=== PATIENT | female | born 1980 ===

== ENCOUNTER 2017-05-28 18:36 | Emergency (ER) | payer SELFPAY ==
[2017-05-28 18:40] VITALS: BMI 25.8
[2017-05-28 18:43] VITALS: BP 116/76; PULSE 69; RESP 18; TEMP 98.5; O2SAT 99
--- NOTE | 2017-05-28 19:33 | ED PDOC ---
Arrival/HPI <Bernard Jeffrey - Last Filed: 05/28/17 19:40> - General Historian: Patient - History of Present Illness Time/Duration: < month Symptom Onset: Gradual Symptom Course: Worsening Context: Home <Nory Keenan - Last Filed: 06/04/17 22:09> - General Chief Complaint: Upper Extremity Problem/Injury Time Seen by Provider: 05/28/17 19:10 - History of Present Illness Narrative History of Present Illness (Text): 05/28/17 19:10 This 36 yo female presents to this ED c/o left shoulder pain x 2 weeks. Patient denies trauma, fall, paresthesias, weakness, swelling, rash, abscess, or neck pain (Nory Keenan) Past Medical History - Provider Review Nursing Documentation Reviewed: Yes - Past History Past History: No Previous - Infectious Disease Hx of Infectious Diseases: None - Past Medical History Past Medical History: No Previous - Genitourinary/Gynecological Hx Genitourinary Disorders: No Other/Comment: depo shot in dec 2016 - Psychiatric Hx Depression: No Hx Emotional Abuse: No Hx Physical Abuse: No Hx Substance Use: No - Past Surgical History Past Surgical History: No Previous - Surgical History Hx Section: Yes Hx Musculoskeletal Surgery: Yes (R wrist surgery) - Anesthesia Hx Anesthesia: Yes Hx Anesthesia Reactions: No - Suicidal Assessment Feels Threatened In Home Enviroment: No <Nory Keenan - Last Filed: 06/04/17 22:09> Family/Social History - Physician Review Nursing Documentation Reviewed: Yes Family/Social History: No Known Family HX Smoking Status: Heavy Smoker > 10 Cigarettes Daily Hx Alcohol Use: No Hx Substance Use: No <Nory Keenan - Last Filed: 06/04/17 22:09> Allergies/Home Meds <Bernard Jeffrey - Last Filed: 05/28/17 19:40> <Nory Keenan - Last Filed: 06/04/17 22:09> Allergies/Adverse Reactions: Allergies No Known Allergies Allergy (Verified 05/28/17 18:40) Review of Systems - Review of Systems Constitutional: Normal. absent: Fatigue, Weight Change, Fevers Eyes: Normal ENT: Normal Respiratory: Normal Cardiovascular: Normal Gastrointestinal: Normal Genitourinary Female: Normal Musculoskeletal: Other (left shoulder pain) Skin: Normal Neurological: Normal Endocrine: Normal Hemo/Lymphatic: Normal Psychiatric: Normal <Nory Keenan - Last Filed: 06/04/17 22:09> Physical Exam Temperature: Afebrile Blood Pressure: Normal Pulse: Regular Respiratory Rate: Normal Appearance: Positive for: Well-Appearing, Non-Toxic, Comfortable Pain Distress: None Mental Status: Positive for: Alert and Oriented X 3 - Systems Exam Head: Present: Atraumatic, Normocephalic Pupils: Present: PERRL Extroacular Muscles: Present: EOMI Conjunctiva: Present: Normal Mouth: Present: Moist Mucous Membranes Neck: Present: Normal Range of Motion, Trachea Midline. No: Meningeal Signs, MIDLINE TENDERNESS, Paraspinal Tenderness Upper Extremity: Present: Normal Inspection, Normal ROM, NORMAL PULSES, Tenderness (mild tenderness over left middle deltoid area. no swelling, erythema, or abscess. Normal ROM), Neurovascularly Intact, Capillary Refill < 2s. No: Cyanosis, Edema, Swelling, Erythema, Temperature Abnormalties Lower Extremity: Present: Normal Inspection, NORMAL PULSES, Normal ROM, Neurovascularly Intact, Capillary Refill < 2 s Neurological: Present: GCS=15, CN II-XII Intact, Speech Normal, Motor Func Grossly Intact, Normal Cerebellar Funct Skin: Present: Warm, Dry, Normal Color. No: Rashes Psychiatric: Present: Alert, Oriented x 3 <Nory Keenan - Last Filed: 06/04/17 22:09> Vital Signs Temp Pulse Resp BP Pulse Ox 05/28/17 20:19 18 99 05/28/17 18:42 98.5 F 69 18 116/76 99 Medical Decision Making <Bernard Jeffrey - Last Filed: 05/28/17 19:40> Re-evaluation Time: 20:03 Reassessment Condition: Re-examined, Improved <Nory Keenan - Last Filed: 06/04/17 22:09> ED Course and Treatment: 05/28/17 20:03 Re-evaluation. Patient feels better. Discussed results and plan with patient who expresses understanding. All questions answered and there is agreement with the plan to discharge home with instructions. Patient stable for discharge. Return if symptoms persist or worsen. (Nory Keenan) - RAD Interpretation Narrative RAD Interpretations (Text): 05/28/17 20:03 Shoulder x-rays: No fx or dislocation (Nory Keenan) Radiology Orders: 05/28/17 19:31 SHOULDER LEFT [RAD] Stat - Medication Orders Current Medication Orders: Discontinued Medications Ketorolac Tromethamine (Toradol) 15 mg IM STAT STA Stop: 05/28/17 19:32 Last Admin: 05/28/17 19:44 Dose: 15 mg - PA / FINANCE PROFESSIONAL / Resident Statement / has reviewed & agrees with the documentation as recorded. <Bernard Jeffrey - Last Filed: 05/28/17 19:40> Disposition/Present on Arrival <Bernard Jeffrey - Last Filed: 05/28/17 19:40> - Present on Arrival Any Indicators Present on Arrival: No History of DVT/PE: No History of Uncontrolled Diabetes: No Urinary Catheter: No History of Decub. Ulcer: No History Surgical Site Infection Following: None - Disposition Have Diagnosis and Disposition been Completed?: Yes Disposition Time: 20:04 Patient Plan: Discharge <Nory Keenan - Last Filed: 06/04/17 22:09> - Disposition Diagnosis: Shoulder bursitis Disposition: HOME/ ROUTINE Condition: GOOD Discharge Instructions (ExitCare): Shoulder Bursitis (ED) Additional Instructions: Call private doctor for follow up visit in 1-2 days. Take medication as instructed. Return to emergency if symptoms worsen. Prescriptions: Famotidine [Pepcid] 40 mg PO DAILY #10 tablet Methocarbamol [Robaxin-750] 750 mg PO TID PRN #20 tablet PRN Reason: Muscle Spasm Naproxen 500 mg PO BID #14 tab Referrals: Elizabeth Steven MD [Primary Care Provider] - Follow up with primary Aniceto Macias DO [Staff Provider] - Follow up with primary Forms: WORK NOTE
--- NOTE | 2017-05-29 07:24 | RAD ---
PROCEDURE: Radiographs of the Left Shoulder HISTORY: pain COMPARISON: No prior. FINDINGS: BONES: Normal. No fracture. JOINTS: Normal. Glenohumeral and acromioclavicular joints preserved. No osteoarthritis. SOFT TISSUES: Normal. OTHER FINDINGS: None. IMPRESSION: Normal radiographs of the left shoulder.
== END 2017-05-28 20:20 | disposition home or self-care (01) ==
LOC: ED 18:36
DX: M75.52 Bursitis of left shoulder (principal)
CPT/HCPCS: 73030; 81025; 96372; 99283; J1885